=== PATIENT | male | born 1990 | race Two or more races ===

== ENCOUNTER 2020-10-06 23:35 | Emergency (ER) | payer OTHER ==
[~2020-10-06] VITALS: Ht 195.6 cm; Wt 77.0 kg
[2020-10-06 23:56] VITALS: BP 135/87
== END 2020-10-07 00:24 ==
LOC: ER 23:36
DX: F17.210 Nicotine dependence, cigarettes, uncomplicated (principal); Z04.1 Encounter for examination and observation following transport accident; Z02.89 Encounter for other administrative examinations
CPT/HCPCS: 99283